=== PATIENT | female | born 1990 | race Caucasian/White ===

== ENCOUNTER 2019-03-06 05:32 | Emergency (ER) | payer BC ==
[2019-03-06] MEDS ORDERED: Sodium Chloride 0.9% 2.5 ML Syringe FLUSH PRN (05:44)
[2019-03-06] MEDS ORDERED: Sodium Chloride 0.9% 10 ML Syringe FLUSH PRN (05:44)
[2019-03-06] MEDS ORDERED: Sodium Chloride 0.9% 1,000 ML IV ONE (05:44)
--- NOTE | 2019-03-06 05:56 | EDM.PDOC ---
<Farzana Shirley - Last Filed: 03/06/19 07:51> ED HPI GENERAL MEDICAL PROBLEM - General Chief Complaint: General Stated Complaint: PASSED OUT Time Seen by Provider: 03/06/19 05:43 - History of Present Illness INITIAL COMMENTS - FREE TEXT/NARRATIVE: Patient was signed out to me by Dr. Zarate follow-up with lab tests. Patient awoke in the ED dated she was unable to give us a urine and wanted to leave now. Patient was signed out AMA. - Related Data Allergies Allergy/AdvReac Type Severity Reaction Status Date / Time No Known Allergies Allergy Verified 03/06/19 05:41 Home Meds: Home Meds ALPRAZolam [Alprazolam] 0 mg PO ASDIRECTED PRN 03/06/19 [History] Zolpidem [Ambien] 10 mg PO ASDIRECTED PRN 03/06/19 [History] Course - Vital Signs Last Recorded V/S: Last Vital Signs Temp 35.7 C 03/06/19 07:27 Pulse 82 03/06/19 07:27 Resp 18 03/06/19 07:27 BP 92/59 L 03/06/19 07:27 Pulse Ox 100 03/06/19 07:27 - Orders/Labs/Meds Orders: Active Orders 24 hr Category Date Time Status Cardiac Monitoring [RC] . DIRECTED Care 03/06/19 05:44 Active Oxygen Therapy, ED [RC] ASDIRECTED Care 03/06/19 05:44 Active Pulse Oximetry [RC] ASDIRECTED Care 03/06/19 05:44 Active Saline Lock Insert [OM.PC] Stat Oth 03/06/19 05:44 Ordered Labs: Laboratory Tests 03/06/19 03/06/19 03/06/19 Range/Units 06:03 06:03 06:03 WBC 12.18 H (4.0-11.0) K/uL RBC 4.39 (4.30-5.90) M/uL Hgb 12.6 (12.0-16.0) g/dL Hct 38.0 (36.0-46.0) % MCV 86.6 (80.0-98.0) fL MCH 28.7 (27.0-32.0) pg MCHC 33.2 (31.0-37.0) g/dL RDW Std Deviation 40.3 (28.0-62.0) fl RDW Coeff of Rola 13 (11.0-15.0) % Plt Count 264 (150-400) K/uL MPV 9.50 (7.40-12.00) fL Neut % (Auto) 76.3 (48.0-80.0) % Lymph % (Auto) 16.0 (16.0-40.0) % [place] % (Auto) 7.2 (0.0-15.0) % Eos % (Auto) 0.4 (0.0-7.0) % Baso % (Auto) 0.1 (0.0-1.5) % Neut # (Auto) 9.3 H (1.4-5.7) K/uL Lymph # (Auto) 2.0 (0.6-2.4) K/uL [place] # (Auto) 0.9 H (0.0-0.8) K/uL Eos # (Auto) 0.1 (0.0-0.7) K/uL Baso # (Auto) 0.0 (0.0-0.1) K/uL Nucleated RBC % 0.0 /100WBC Nucleated RBCs # 0 K/uL Sodium 139 (136-145) mmol/L Potassium 3.9 (3.5-5.1) mmol/L Chloride 104 (98-107) mmol/L Carbon Dioxide 27.4 (21.0-32.0) mmol/L BUN 15 (7.0-18.0) mg/dL Creatinine 0.8 (0.6-1.0) mg/dL Est Cr Clr Drug Dosing 74.53 mL/min Estimated GFR (MDRD) > 60.0 ml/min Glucose 123 H (74-106) mg/dL Calcium 9.1 (8.5-10.1) mg/dL Total Bilirubin 0.4 (0.2-1.0) mg/dL AST 119 H (15-37) IU/L ALT 138 H (14-63) IU/L Alkaline Phosphatase 51 (46-116) U/L Troponin I < 0.050 (0.000-0.056) ng/mL Total Protein 7.3 (6.4-8.2) g/dL Albumin 4.0 (3.4-5.0) g/dL Globulin 3.3 (2.6-4.0) g/dL Albumin/Globulin Ratio 1.2 (0.9-1.6) HCG, Qual (NEG) Ethyl Alcohol <3 mg/dL 03/06/19 Range/Units 06:17 WBC (4.0-11.0) K/uL RBC (4.30-5.90) M/uL Hgb (12.0-16.0) g/dL Hct (36.0-46.0) % MCV (80.0-98.0) fL MCH (27.0-32.0) pg MCHC (31.0-37.0) g/dL RDW Std Deviation (28.0-62.0) fl RDW Coeff of Rola (11.0-15.0) % Plt Count (150-400) K/uL MPV (7.40-12.00) fL Neut % (Auto) (48.0-80.0) % Lymph % (Auto) (16.0-40.0) % [place] % (Auto) (0.0-15.0) % Eos % (Auto) (0.0-7.0) % Baso % (Auto) (0.0-1.5) % Neut # (Auto) (1.4-5.7) K/uL Lymph # (Auto) (0.6-2.4) K/uL [place] # (Auto) (0.0-0.8) K/uL Eos # (Auto) (0.0-0.7) K/uL Baso # (Auto) (0.0-0.1) K/uL Nucleated RBC % /100WBC Nucleated RBCs # K/uL Sodium (136-145) mmol/L Potassium (3.5-5.1) mmol/L Chloride (98-107) mmol/L Carbon Dioxide (21.0-32.0) mmol/L BUN (7.0-18.0) mg/dL Creatinine (0.6-1.0) mg/dL Est Cr Clr Drug Dosing mL/min Estimated GFR (MDRD) ml/min Glucose (74-106) mg/dL Calcium (8.5-10.1) mg/dL Total Bilirubin (0.2-1.0) mg/dL AST (15-37) IU/L ALT (14-63) IU/L Alkaline Phosphatase (46-116) U/L Troponin I (0.000-0.056) ng/mL Total Protein (6.4-8.2) g/dL Albumin (3.4-5.0) g/dL Globulin (2.6-4.0) g/dL Albumin/Globulin Ratio (0.9-1.6) HCG, Qual NEGATIVE (NEG) Ethyl Alcohol mg/dL Meds: Medications Discontinued Medications Generic Name Dose Route Start Last Admin Trade Name Freq PRN Reason Stop Dose Admin Sodium Chloride 1,000 mls @ 999 mls/hr 03/06/19 05:44 03/06/19 06:03 Normal Saline IV 03/06/19 06:44 999 mls/hr STAT ONE Administration Sodium Chloride 10 ml 03/06/19 05:44 Saline Flush FLUSH ASDIRECTED PRN Keep Vein Open Sodium Chloride 2.5 ml 03/06/19 05:44 Saline Flush FLUSH ASDIRECTED PRN Keep Vein Open Departure - Departure Time of Disposition: 07:52 Disposition: Against Medical Advice 07 Clinical Impression: Episode of unresponsiveness - Discharge Information Referrals: PCP,None [Primary Care Provider] - Forms: ED Department Discharge Additional Instructions: The following information is given to patients seen in the emergency department who are being discharged to home. This information is to outline your options for follow-up care. We provide all patients seen in our emergency department with a follow-up referral. The need for follow-up, as well as the timing and circumstances, are variable depending upon the specifics of your emergency department visit. If you don't have a primary care physician on staff, we will provide you with a referral. We always advise you to contact your personal physician following an emergency department visit to inform them of the circumstance of the visit and for follow-up with them and/or the need for any referrals to a consulting specialist. The emergency department will also refer you to a specialist when appropriate. This referral assures that you have the opportunity for followup care with a specialist. All of these measure are taken in an effort to provide you with optimal care, which includes your followup. Under all circumstances we always encourage you to contact your private physician who remains a resource for coordinating your care. When calling for followup care, please make the office aware that this follow-up is from your recent emergency room visit. If for any reason you are refused follow-up, please contact the [facility] emergency department at and ask to speak to the emergency department charge nurse. [address] [place] [id number] Push hydration and rest. Please call and follow-up with your provider at [facility] Dr. Rachel this week for reevaluation and further care of tonight 's events. Return to ER as needed and as discussed - My Orders Last 24 Hours: My Active Orders 03/06/19 05:44 Cardiac Monitoring [RC] . DIRECTED Oxygen Therapy, ED [RC] ASDIRECTED Pulse Oximetry [RC] ASDIRECTED Saline Lock Insert [OM.PC] Stat - Assessment/Plan Last 24 Hours: My Active Orders 03/06/19 05:44 Cardiac Monitoring [RC] . DIRECTED Oxygen Therapy, ED [RC] ASDIRECTED Pulse Oximetry [RC] ASDIRECTED Saline Lock Insert [OM.PC] Stat <Diana Zarate - Last Filed: 03/06/19 19:34> ED HPI GENERAL MEDICAL PROBLEM - History of Present Illness INITIAL COMMENTS - FREE TEXT/NARRATIVE: HISTORY AND PHYSICAL: History of present illness: The patient is a 28-year-old female with a history of chronic pain, nerve damage , anxiety for which she takes OxyContin Contin gabapentin Ambien and Xanax and follows with Dr. Rachel at [facility] and presents with her significant other after he noted her to be gurgling and not responding while she was in bed sleeping. According to the boyfriend he heard her making noises at approximately 2 AM and she wouldn't respond when he was trying to wake her so he did CPR and rescue breathing (several rounds as he learned in a class) and then she seemed to come to. EMS was dispatched to the scene and they initially refused transfer and are now here for evaluation. Here in the ED the patient says that she sleeps very hard and she did not take any excessive medication and only took her Ambien at sleep time. She is prescribed Xanax as well which she takes as needed for her anxiety and she told nursing that she took a dose last night as well. She denies any alcohol or drug use and says that she ate and drank normally yesterday. Currently in the ED she complains of no chest pain no shortness of breath no abdominal pain no nausea and has had no vomiting. She has no focal discomfort weakness or tingling in her extremities but says that she has a diffuse headache and some posterior neck pain that is new and not part of her chronic pain syndrome. According to significant other she did not fall out of the bed and was in bed the entire time during these above events. She has no new thoracic or lower back pain. Review of systems: As per history of present illness and below otherwise all systems reviewed and negative. Past medical history: As per history of present illness and as reviewed below otherwise noncontributory. Surgical history: As per history of present illness and as reviewed below otherwise noncontributory. Social history: No reported history of drug or alcohol abuse. Family history: As per history of present illness and as reviewed below otherwise noncontributory. Physical exam: General: Well-developed well-nourished thin female who is nontoxic and seems incredibly drowsy on my evaluation but answers questions and is appropriate and cooperative. Her noted by me. Initially upon my entry into the room the patient was sleeping and needed to be aroused HEENT: Atraumatic, normocephalic, pupils reactive, negative for conjunctival pallor or scleral icterus, mucous membranes tacky, throat clear, neck supple, nontender, trachea midline. Sclera are not injected and there are no midline step-offs tenderness defects of the cervical spine but there is diffuse cervical tenderness with palpation without any one localized area. There are no scalp defects or deformities. Lungs: Clear to auscultation, breath sounds equal bilaterally, chest nontender. There is no evidence of any bruising crepitus defects deformities or erythema on the chest wall secondary to the significant other doing CPR. There is no work of breathing wheezing or stridor Heart: S1S2, regular, negative for clicks, rubs, or JVD. Abdomen: Soft, nondistended, nontender. Negative for masses or hepatosplenomegaly. NABS Pelvis: Stable nontender. Genitourinary: Deferred. Rectal: Deferred. Extremities: Atraumatic, negative for cords or calf pain. Neurovascular unremarkable. Full range of motion without defects or deficits and no edema Neuro: Awake, alert, oriented the patient is sleepy. Cranial nerves II through XII unremarkable. Cerebellum unremarkable. Motor and sensory unremarkable throughout. Exam nonfocal. Diagnostics: EKG CBC CMP troponin UA UDS HCG chest x-ray CT scan of the head and C-spine EtOH Therapeutics: IV O2 monitor IV fluids According to the computer the patient had a lumbar MRI performed on August of this year which I reviewed. 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 Patient told me that she had a "extra bone in her back" that causes her pain but that is not evidenced on the MRI. 0700: Case is endorsed to Dr. Shirley follow-up testing results and imaging and disposition patient pending those results. Patient is currently stable in the ED. Impression: Episode of unresponsiveness etiology unclear Cephalgia and neck pain; history of chronic back pain and nerve pain. Definitive disposition and diagnosis as appropriate pending reevaluation and review of above. head Pain Score (Numeric/FACES): 6 Past Medical History [employer] History: Reports: Endocrine/Metabolic History: Reports: Other (See Below) - Past Surgical History HEENT Surgical History: Reports: Oral Surgery Female Surgical History: Reports: Section, Other (See Below) Other Female Surgeries/Procedures: hx of ovarian cysts Other Endocrine Surgeries/Procedures: RA Social & Family History - Family History Family Medical History: Noncontributory - Caffeine Use Caffeine Use: Reports: None ED ROS GENERAL - Review of Systems Review Of Systems: ROS reveals no pertinent complaints other than HPI. ED EXAM, GENERAL - Physical Exam Exam: See Below (See dictation) Course - Orders/Labs/Meds Labs: Laboratory Tests 03/06/19 03/06/19 03/06/19 Range/Units 06:03 06:03 06:03 WBC 12.18 H (4.0-11.0) K/uL RBC 4.39 (4.30-5.90) M/uL Hgb 12.6 (12.0-16.0) g/dL Hct 38.0 (36.0-46.0) % MCV 86.6 (80.0-98.0) fL MCH 28.7 (27.0-32.0) pg MCHC 33.2 (31.0-37.0) g/dL RDW Std Deviation 40.3 (28.0-62.0) fl RDW Coeff of Rola 13 (11.0-15.0) % Plt Count 264 (150-400) K/uL MPV 9.50 (7.40-12.00) fL Neut % (Auto) 76.3 (48.0-80.0) % Lymph % (Auto) 16.0 (16.0-40.0) % [place] % (Auto) 7.2 (0.0-15.0) % Eos % (Auto) 0.4 (0.0-7.0) % Baso % (Auto) 0.1 (0.0-1.5) % Neut # (Auto) 9.3 H (1.4-5.7) K/uL Lymph # (Auto) 2.0 (0.6-2.4) K/uL [place] # (Auto) 0.9 H (0.0-0.8) K/uL Eos # (Auto) 0.1 (0.0-0.7) K/uL Baso # (Auto) 0.0 (0.0-0.1) K/uL Nucleated RBC % 0.0 /100WBC Nucleated RBCs # 0 K/uL Sodium 139 (136-145) mmol/L Potassium 3.9 (3.5-5.1) mmol/L Chloride 104 (98-107) mmol/L Carbon Dioxide 27.4 (21.0-32.0) mmol/L BUN 15 (7.0-18.0) mg/dL Creatinine 0.8 (0.6-1.0) mg/dL Est Cr Clr Drug Dosing 74.53 mL/min Estimated GFR (MDRD) > 60.0 ml/min Glucose 123 H (74-106) mg/dL Calcium 9.1 (8.5-10.1) mg/dL Total Bilirubin 0.4 (0.2-1.0) mg/dL AST 119 H (15-37) IU/L ALT 138 H (14-63) IU/L Alkaline Phosphatase 51 (46-116) U/L Troponin I < 0.050 (0.000-0.056) ng/mL Total Protein 7.3 (6.4-8.2) g/dL Albumin 4.0 (3.4-5.0) g/dL Globulin 3.3 (2.6-4.0) g/dL Albumin/Globulin Ratio 1.2 (0.9-1.6) HCG, Qual (NEG) Ethyl Alcohol <3 mg/dL 03/06/19 Range/Units 06:17 WBC (4.0-11.0) K/uL RBC (4.30-5.90) M/uL Hgb (12.0-16.0) g/dL Hct (36.0-46.0) % MCV (80.0-98.0) fL MCH (27.0-32.0) pg MCHC (31.0-37.0) g/dL RDW Std Deviation (28.0-62.0) fl RDW Coeff of Rola (11.0-15.0) % Plt Count (150-400) K/uL MPV (7.40-12.00) fL Neut % (Auto) (48.0-80.0) % Lymph % (Auto) (16.0-40.0) % [place] % (Auto) (0.0-15.0) % Eos % (Auto) (0.0-7.0) % Baso % (Auto) (0.0-1.5) % Neut # (Auto) (1.4-5.7) K/uL Lymph # (Auto) (0.6-2.4) K/uL [place] # (Auto) (0.0-0.8) K/uL Eos # (Auto) (0.0-0.7) K/uL Baso # (Auto) (0.0-0.1) K/uL Nucleated RBC % /100WBC Nucleated RBCs # K/uL Sodium (136-145) mmol/L Potassium (3.5-5.1) mmol/L Chloride (98-107) mmol/L Carbon Dioxide (21.0-32.0) mmol/L BUN (7.0-18.0) mg/dL Creatinine (0.6-1.0) mg/dL Est Cr Clr Drug Dosing mL/min Estimated GFR (MDRD) ml/min Glucose (74-106) mg/dL Calcium (8.5-10.1) mg/dL Total Bilirubin (0.2-1.0) mg/dL AST (15-37) IU/L ALT (14-63) IU/L Alkaline Phosphatase (46-116) U/L Troponin I (0.000-0.056) ng/mL Total Protein (6.4-8.2) g/dL Albumin (3.4-5.0) g/dL Globulin (2.6-4.0) g/dL Albumin/Globulin Ratio (0.9-1.6) HCG, Qual NEGATIVE (NEG) Ethyl Alcohol mg/dL Departure - Departure Condition: Good
[2019-03-06 06:36] LABS: BLOOD UREA NITROGEN,BUN 15 mg/dL (7.0-18.0); CARBON DIOXIDE,CO2 27.4 mmol/L (21.0-32.0); CHLORIDE,CL 104 mmol/L (98-107); GLUCOSE RANDOM 123 mg/dL (74-106); POTASSIUM,K 3.9 mmol/L (3.5-5.1); SODIUM,NA 139 mmol/L (136-145)
--- NOTE | 2019-03-06 07:12 | CR ---
INDICATION: Pain. TECHNIQUE: AP chest. COMPARISON: None. FINDINGS: The cardiac, mediastinal and hilar contours are normal. Normal pulmonary vasculature. Lungs are grossly clear. No appreciable pleural fluid on this single view study. No pneumothorax. No acute bony abnormality. IMPRESSION: No signs of acute thoracic disease. Dictated by Wyatt Welch MD @ 03/06/2019 7:11:25 AM Dictated by: Wyatt Welch MD @ 03/06/2019 07:11:31 (Electronically Signed)
--- NOTE | 2019-03-06 07:16 | CT ---
INDICATION: Pain. TECHNIQUE: Noncontrast axial images. Sagittal and coronal reconstructions. COMPARISON: None. FINDINGS: There is no abnormal intracranial mass effect or midline shift. No intracranial hemorrhage. No abnormal areas of attenuation are seen within the brain. CSF spaces are age-appropriate. No acute osseous abnormality. The visualized paranasal sinuses and mastoids are essentially clear. IMPRESSION: No CT evidence of an acute intracranial abnormality. Dictated by Wyatt Welch MD @ 03/06/2019 7:15:10 AM Please note that all CT scans at this facility use dose modulation, iterative reconstruction, and/or weight-based dosing when appropriate to reduce radiation dose to as low as reasonably achievable. Dictated by: Wyatt Welch MD @ 03/06/2019 07:15:16 (Electronically Signed)
--- NOTE | 2019-03-06 07:21 | CT ---
INDICATION: Pain. TECHNIQUE: Noncontrast axial images. Sagittal and coronal reconstructions. COMPARISON: None. FINDINGS: There is no abnormal prevertebral soft tissue swelling. There is straightening of the normal lordotic cervical spine curvature with mild reversal centered at C4-5. No vertebral body malalignment or facet joint subluxation or dislocation. No cervical spine fracture. The intervertebral disc spaces are relatively well maintained. Mild endplate degenerative spurring is seen at the C5-6 level, suggesting mild disc degeneration. No significant spinal canal or neural foraminal stenosis is identified by CT. IMPRESSION: No cervical spine fracture or traumatic malalignment. Dictated by Wyatt Welch MD @ 03/06/2019 7:19:01 AM Please note that all CT scans at this facility use dose modulation, iterative reconstruction, and/or weight-based dosing when appropriate to reduce radiation dose to as low as reasonably achievable. Dictated by: Wyatt Welch MD @ 03/06/2019 07:19:11 (Electronically Signed)
== END 2019-03-06 07:28 | disposition left against medical advice (07) ==
LOC: MW.ED 05:32
DX: R41.82 Altered mental status, unspecified (principal); R51 Headache; M54.2 Cervicalgia; Z87.39 Personal history of other diseases of the musculoskeletal system and connective tissue; Z86.69 Personal history of other diseases of the nervous system and sense organs
CPT/HCPCS: 36415; 70450; 71045; 72125; 80053; 80320; 84484; 84703; 85025; 93005; 96360; 99285; J7040; G0480